=== PATIENT | female | born 2000 | race Caucasian/White ===

== ENCOUNTER 2025-01-29 08:41 | Emergency (ER) | payer MEDICAID ==
[~2025-01-29] VITALS: Ht 165.1 cm; Wt 80.9 kg
[2025-01-29 09:00] VITALS: TEMP 97.7
[2025-01-29 09:36] LABS: PLATELET COUNT (AUTO) 256 K/uL (150-450); RED BLOOD CELL COUNT(AUTO) 4.63 MIL/uL (4.00-5.20); RED CELL DISTRIBUTION WIDTH 12.7 % (11.5-14.5); WHITE BLOOD COUNT (AUTO) 5.2 K/uL (4.5-11.0)
[2025-01-29 09:39] LABS: CALCIUM, TOTAL 8.7 mg/dL (8.8-10.5); CREATININE 0.62 mg/dL (0.60-1.30); GLOMERULAR FILTR. RATE CALC > 60 mL/min (>60); GLUCOSE,RANDOM 90 mg/dL (70-110); SODIUM SERUM 137 mmol/L (136-145); UREA NITROGEN, BLOOD 10 mg/dL (7-18)
[2025-01-29 09:46] LABS: COVID AG,FIA SOURCE NASAL SWAB
[2025-01-29 10:04] LABS: RAPID GROUP A STREP NEGATIVE (NEGATIVE)
[2025-01-29] MEDS: SODIUM CHLORIDE 0.9% 1,000 ML IV ONE (10:07)
[2025-01-29] MEDS: KETOROLAC TROMETHAMINE 30 MG/ML VIAL IVP ONE (10:07)
[2025-01-29 10:15] LABS: SARS-COV2 (COVID) ANTIGEN,FIA Negative (Negative)
[2025-01-29 10:16] LABS: INFLUENZA TYPE A NEGATIVE FOR TYPE A (NEGATIVE); INFLUENZA TYPE B NEGATIVE FOR TYPE B (NEGATIVE)
[2025-01-29] MEDS ORDERED: IOHEXOL 300 MG/ML 100 ML VIAL ONE (10:33)
[2025-01-29] MEDS ORDERED: SODIUM CHLORIDE 0.9% 100 ML ONE (10:33)
[2025-01-29] MEDS ORDERED: 0.9% SODIUM CHLORIDE 10 ML SYRINGE IVP ONE (10:33)
[2025-01-29] MEDS ORDERED: AMOX-457 PO (12:23)
[2025-01-29] MEDS ORDERED: ACET-3385 PO (12:23)
[2025-01-29] MEDS ORDERED: IBUP-1492 PO (12:23)
[2025-01-29 12:30] VITALS: BP 109/64; PULSE 69; RESP 16; O2SAT 99
[2025-01-29] MEDS: AMOX TR/POT CLAV 875 MG/125 MG TABLET PO ONE (12:30)
== END 2025-01-29 12:44 | disposition home or self-care (01) ==
LOC: EMS 08:41
DX: J03.90 Acute tonsillitis, unspecified (principal); Z91.040 Latex allergy status; Z91.018 Allergy to other foods; Z20.822 Contact with and (suspected) exposure to COVID-19
CPT/HCPCS: 99285; 96374; 70491; 96361; 87426; 80048; 84703; 85025; 87430; 87804; 36415; J1885; J7030; J7050; Q9967